=== PATIENT | male | born 2005 | race Caucasian/White ===

== ENCOUNTER 2023-05-14 10:34 | Outpatient (CLI) | payer BC, SELFPAY ==
--- NOTE | 2023-05-14 10:56 | XR_ITS ---
WS: [id number] EXAMINATION: XR finger RT min 2V [id number] REASON FOR EXAM: PAIN IN RIGHT FINGERS COMPARISON: None available. ORDER DATE: 05/14/2023 11:04 AM FINDINGS: There is a serpiginous vertical fracture extending through most of the length of the fifth proximal p halanx without displacement. There is soft tissue swelling in the fifth digit. XR/XR finger RT min 2V [id number] IMPRESSION: Acute nondisplaced fracture through the fifth proximal phalanx
== END 2023-05-14 10:35 | disposition home or self-care (01) ==
PROVIDERS: PCP Nurse Practitioner Family; Visit Provider Nurse Practitioner Family
DX: S62.646A Nondisplaced fracture of proximal phalanx of right little finger, initial encounter for closed fracture (principal); X58.XXXA Exposure to other specified factors, initial encounter; Y93.9 Activity, unspecified; Y92.9 Unspecified place or not applicable; Y99.9 Unspecified external cause status; M79.644 Pain in right finger(s)
CPT/HCPCS: 73140